=== PATIENT | male | born 1975 | race Caucasian/White ===

== ENCOUNTER 2021-07-08 10:29 | Outpatient (CLI) | payer OTHER, SELFPAY ==
--- NOTE | 2021-07-08 10:50 | CT_ITS ---
WS: [id number] CT CHEST ANGIOGRAPHY WITH REFORMATS HISTORY: COVID-19 CORONAVIRUS PNEUMONIA; TECHNIQUE: Contiguous axial images are obtained through the chest during arterial injection of intrav enous contrast. Images are reconstructed to evaluate the pulmonary arteries. MIP imaging also reviewe d. All CT scans at [facility] use at least one of these dose optimization techniques: automat ed exposure control; mA and/or kV adjustment per patient size (includes targeted exams where dose is matched to clinical indication); or iterative reconstruction. CONTRAST: Omnipaque 350; 80 mL IV. DLP: 518.20 mGy.cm COMPARISON: None available. Adequate opacification of the pulmonary arteries. No central filling defect is evident. Through the l obar and segmental branches the opacification is negative for pulmonary embolism. Beyond the segmenta l branches the opacification becomes limited. Normal-sized thoracic aorta. No dissection. Heart is no rmal. There are a few mildly enlarged mediastinal and hilar lymph nodes which are probably reactive. There is extensive bilateral groundglass opacifications throughout all lobes. Most significant in the lower lung masters. No pneumothorax or pneumomediastinum. Hepatic steatosis within the visualized liver. Prior cholecystectomy. Mild thoracic spondylitic neumann . CT/CT angio chest PE protcl [id number] IMPRESSION: 1. No pulmonary embolism. 2. Diffuse bilateral pulmonary opacifications/groundglass attenuation. Most co nsistent with the diagnosis of Covid 19 pneumonia. 3. Mildly reactive lymphadenopathy. Notified Lavinia Yoo MD at 07/08/2021 11:36 AM.
[2021-07-08] MEDS: iohexol 350 mg/mL 100 mL Btl IV (11:17)
== END 2021-07-08 10:30 | disposition home or self-care (01) ==
LOC: RAD 10:45
PROVIDERS: PCP Internal Medicine; Visit Provider Internal Medicine
DX: U07.1 COVID-19 (principal)
CPT/HCPCS: 71275

== ENCOUNTER 2021-07-13 09:09 | Outpatient (CLI) | payer OTHER, SELFPAY ==
--- NOTE | 2021-07-13 09:28 | XR_ITS ---
WS: [id number] CHEST 2 VIEWS HISTORY: COVID PNEUMONIA COMPARISON: Chest CT 07/08/2021 Lungs: Extensive bilateral pulmonary opacifications, slightly greater throughout the LEFT lung. As co mpared to the technical architect localizer on the CT the airspace disease appears progressed. No pleural effusion or pneumothorax. Cardiac size: Normal. Mediastinum/Aorta: No pneumomediastinum. No mediastinal widening. Bones: Normal. XR/XR chest 2V* [id number] IMPRESSION: 1. Diffuse bilateral pulmonary opacifications consistent with history of Covid 19. 2. As compared to the skull localizer from 07/08/2021 there has been a mild prog ression of pneumonia.
== END 2021-07-13 09:10 | disposition home or self-care (01) ==
PROVIDERS: PCP Internal Medicine; Visit Provider Internal Medicine
DX: U07.1 COVID-19 (principal); J12.82 Pneumonia due to coronavirus disease 2019
CPT/HCPCS: 71046

== ENCOUNTER 2021-07-20 11:04 | Outpatient (CLI) | payer OTHER, SELFPAY ==
--- NOTE | 2021-07-20 11:21 | XRR_ITS ---
PROCEDURE INFORMATION: Exam: XR Chest Exam date and time: 07/20/2021 11:21 AM Age: 46 years old Clinical indication: Condition or disease; Lung condition and disease; Pneumonia; Additional info: Covid pneumonia TECHNIQUE: Imaging protocol: XR of the chest. Views: 2 views. COMPARISON: CR XR chest 2V* [id number] 07/13/2021 9:37 AM FINDINGS: Lungs: Vascular congestion is seen involving the bilateral perihilar and lower lobe regions. These findings are stable since prior examination. Pleural spaces: Unremarkable. No pleural effusion. No pneumothorax. Heart/Mediastinum: Unremarkable. No cardiomegaly. Bones/joints: Unremarkable. XR/XR chest 2V* [id number] IMPRESSION: 1. Stable bilateral hilar and lower lobe vascular congestion. 2. Otherwise negative examination
== END 2021-07-20 11:05 | disposition home or self-care (01) ==
PROVIDERS: PCP Internal Medicine; Visit Provider Internal Medicine
DX: U07.1 COVID-19 (principal); J12.82 Pneumonia due to coronavirus disease 2019
CPT/HCPCS: 71046